=== PATIENT | male | born 1950 | race Caucasian/White ===

== ENCOUNTER 2016-04-17 10:42 | Day surgery (SDC) | payer OTHER ==
[~2016-04-17] VITALS: Ht 185.4 cm; Wt 92.5 kg
[~2016-04-17 10:42] MED LIST: Lactated Ringer's 1,000 ML IV ONE; PANT20T PO
[2016-04-17] MEDS ORDERED: Propofol 10,000 mCg/mL 20 mL Inj ONE (10:43)
[2016-04-17 11:00] VITALS: BP 116/83; PULSE 54; RESP 16; O2SAT 99
[2016-04-17] MEDS ORDERED: Lactated Ringer's 1,000 ML IV SCH (12:21)
--- NOTE | 2016-04-17 12:21 | PCM.HPANE ---
Patient Data Surgeon Admitting Provider: Attending Provider:Mario Mcqueen MD Primary Care Physician:Chevy Mace MD Other Provider:[facility] Reason for Visit Dysphagia Ht/WT & BMI Height (Feet): 6 Height (Inches): 1 Weight (Kilograms): 92.53 Body Mass Index 27.00 Allergies Coded Allergies: oxycodone (Verified Allergy, Unknown, 04/15/16) Past Anesthesia History Anesthesia History: Denies:: Abnormal Airway, Anesthesia Reactions, Difficult Intubation, Fam Anesthesia Reaction, Fam Malignant Hypertherm, Malignant Hyperthermia Diabetes History Hx Diabetes?: No MRSA MRSA: No Medications Home Meds Incl Beta Vivien: No Reported Medications Pantoprazole DR (Protonix)20 Mg [id number] Mg PO BID Ref 0 04/15/16 History HEENT History: Positive for:: Dysphagia Denies:: Abnormal Airway Difficult Intubation Hearing Problem Hx of Heart Problems?: No Cardiovascular History: Denies:: AICD Atrial Fibrillation Chest Pain Hypertension Pacemaker Valvular Heart Disease Hx of Respiratory Problem?: Yes Respiratory History: Positive for:: Asthma (childhood asthma) Denies:: COPD Cough Hemoptysis Pneumonia Tuberculosis Neurological History: Denies:: CVA Hx of GI Problems?: Yes Gastrointestinal History: Positive for:: Gastroesphageal Reflux (takes protonix) Denies:: Cirrhosis Diverticulitis (osis) Gall Bladder Disease Hiatal Hernia Liver Disease Rectal Bleeding Musculoskeletal History: Denies:: Fibromyalgia Joint Replacement Psycho Social History: Denies:: Anxiety Hx Depression Hx Surgeries?: Yes (prostatectomy 2003 ) Hx Any Other Health Problems?: No Hx Diabetes: No Hx Alcohol Use: Yes (2-3 drinks of Gin per day) Stop/Bang Treated for Sleep Apnea?: No Do You Have a CPAP Machine?: No S-Snoring: Do You Snore Loudly: Yes T-Tired: feel tired, fatigued: Yes O-Obsered: Observed not breath: No P-Blood Pressure: treated: No B- Body Mass Index > 35 kg/m2: No A- Age over 50: Yes N- Neck Large Circumference: No G- Gender Male: Yes NICK Total Score: 4 NICK Risk Assessment: Low Risk, <3 Yes Risk Assessment Category Category 1A: Patient has history of documented sleep apnea, and HAS NOT received any narcotic, sedative or anesthesia administration during this stay. Category 1B: Patient has history of documented sleep apnea, and HAS received any narcotic , sedative or anesthesia administration during this stay Category 2: Patient has SUSPECTED Obstructive Sleep Apnea, and HAS received any narcotic , sedative or anesthesia administration during this stay. Category 3: Patient has SUSPECTED Obstructive Sleep Apnea and HAS NOT received narcotic, sedative or anesthesia administration during this stay. Category 4: Outpatient in Procedural Areas with known sleep apnea or who screen positive for High Risk via the STOP/BANG questionnaire. Exam Exam Vital Signs Vital Signs Date Time Temp Pulse Resp B/P Pulse Ox O2 Delivery O2 Flow Rate FiO2 04/17/16 11:00 36.4 54 16 116/83 99 Room Air General Appearance: Oriented X3 HEENT/AIRWAY: MP 2 Lungs: Normal Air Movement Heart: Regular Rate/Rhythm Meds/Labs/Diagnostics Admission Meds Current Medications Lactated Ringer's (Lr) 1,000 ml @ 10 mls/hr Q24H ONCE IV Last administered on 04/17/16t 11:09; Start 04/17/16 at 06:00; Stop 04/18/16 at 05:59 Plan Impression Patient chart reviewed, patient interviewed and anesthestic plan with risks, benefits, and alternatives discussed, and informed consent obtained. ASA Physical Status: ASA2 Mod Systemic Disease Anesthetic Plan: MAC Bene/Risks/Altern/Consents: Yes HP Complete Prior to Induction: Yes Reji Barraza MD Apr 17, 2016 12:21
[2016-04-17] MEDS ORDERED: MetoCLOpramide 5 mg/mL 2 mL Inj IVPUSH PRN (12:25)
[2016-04-17] MEDS ORDERED: Ondansetron 2 mg/mL 2 mL Inj IVPUSH PRN (12:25)
[2016-04-17 12:44] VITALS: BP 114/73; PULSE 54; RESP 16; O2SAT 97
--- NOTE | 2016-04-17 12:51 | PCM.ANEP1 ---
Post Anesthesia Phase 1 PACU Phase 1 Assessment Vital Signs Vital Signs Date Time Temp Pulse Resp B/P Pulse Ox O2 Delivery O2 Flow Rate FiO2 04/17/16 12:44 36.4 54 16 114/73 97 Room Air 04/17/16 11:00 36.4 54 16 116/83 99 Room Air Anesthetic Administered: MAC Level of Alertness: Awake, talking Pain: No Nausea or Vomiting: No Oxygen Delivery: Room Air Lungs: Normal Air Movement Reji Barraza MD Apr 17, 2016 12:51
[2016-04-17 12:52] VITALS: BP 122/82; PULSE 53; RESP 16; O2SAT 97
--- NOTE | 2016-04-17 12:52 | PCM.ANEP2 ---
Post Anesthesia Evaluation ASA/CMS Post Anesthesia VS in Patient's Normal Range?: Yes Resp Stable; Airway Patent?: Yes CV Function & Hydration Stable: Yes Mental Status Recovered?: Yes Pain control Satisfactory?: Yes N/V Control Satisfactory?: Yes Reji Barraza MD Apr 17, 2016 12:52
[2016-04-17 13:02] VITALS: BP 137/84; PULSE 57; RESP 16; O2SAT 100
--- NOTE | 2016-04-17 13:12 | ENDO ---
[address] [address] ENDOSCOPY PROCEDURE PATIENT: VIDAL GONZALEZ : 1950 MR#: [id number] ADMIT: 04/17/2016 JOB ID: [id number] DATE: 04/17/2016 TYPE OF OPERATION: Esophagogastroduodenoscopy with biopsy. PREOPERATIVE DIAGNOSIS(ES): Dysphagia. POSTOPERATIVE DIAGNOSIS(ES): 1. Moderate distal esophagitis. 2. Multiple distal esophageal ulcers, status post biopsy. 3. Mild nonerosive gastritis. 4. Small hiatal hernia. ANESTHESIA: Monitored anesthesia care. COMPLICATIONS: None. BLOOD LOSS: Minimal. DESCRIPTION OF PROCEDURE: After risks and benefits were explained to the patient, informed consent was obtained. After anesthesia administered, upper endoscope was then inserted into the esophagus, stomach, second portion of duodenum, and the mucosa carefully examined. After the procedure was done, the scope was withdrawn and procedure terminated. FINDINGS: Upon inspection of the esophagus, there were multiple distal esophageal ulcers along with moderate esophagitis in the distal esophagus. Z-line located 35 cm from incisors. Upon entering the stomach, there was a mild amount of nonerosive gastritis. Retroflexion showed a small hiatal hernia. Duodenal bulb, first and second portion were normal. Biopsies taken from the antrum and body of the stomach and distal esophagus. IMPRESSIONS: 1. Mild nonerosive gastritis. 2. Small hiatal hernia. 3. Multiple distal esophageal ulcers, status post biopsy. 4. Moderate distal esophagitis. RECOMMENDATIONS: 1. Increase Protonix to 40 mg by mouth twice a day. 2. Carafate 1 g by mouth four times a day. 3. Await pathology results. 4. Followup in GI Clinic in 4-6 weeks.
--- NOTE | 2016-04-21 14:25 | PATH ---
SURGICAL PATHOLOGY Attending Physician:Mario Mcqueen MD CASE STATUS: Signed Out PATIENT NAME: VIDAL GONZALEZ PID: [id number] : 1950 DATE COLLECTED:04/17/2016 20:15 SPECIMEN: 1: Esophagus, Biopsy 2: Esophagus, Biopsy 3: Stomach, Antrum, Biopsy 4: Gastric, Biopsy CLINICAL HISTORY: 1). MID ESOPHAGUS BIOPSIES 2). DISTAL ESOPHAGUS BIOPSIES 3). ANTRUM BIOPSIES 4). GASTRIC BODY BIOPSIES FINAL DIAGNOSIS: 1.MID ESOPHAGUS BIOPSIES: SQUAMOUS MUCOSA WITH NO DIAGNOSTIC ALTERATIONS. Negative for intestinal/Culver' s metaplasia. Negative for dysplasia and malignancy.2.DISTAL ESOPHAGUS BIOPSIES: SQUAMOCOLUMNAR MUCOSA WITH CHRONIC ACTIVE INFLAMMATION. POSITIVE FOR INTESTINAL/CULVER' S METAPLASIA BY ALCIAN BLUE STAIN. Negative for dysplasia and malignancy. 3.ANTRUM BIOPSIES: GASTRIC ANTRAL MUCOSA WITH MILD CHRONIC INFLAMMATION. Negative for Helicobacter organisms by immunohistochemical stains. Negative for intestinal metaplasia. Negative for dysplasia and malignancy. 4.GASTRIC BODY BIOPSIES: GASTRIC BODY MUCOSA WITH MILD CHRONIC INFLAMMATION. Negative for intestinal metaplasia. Negative for dysplasia and malignancy. ICD10 code K22.71 K29.70 GROSS DESCRIPTION: The specimen is received in four formalin filled containers labeled with the patient's name. 1). The specimen is sublabeled "mid esophagus" and consists of 2 portions of tissue which aggregate to 0.3 x 0.3 x 0.2 CM. The specimen is entirely submitted in cassette 1A. 2). The specimen is sublabeled "distal esophagus" and consists of 2 portions of tissue which aggregate to 0.3 x 0.2 x 0.2 CM. The specimen is entirely submitted in cassette 2A. 3). The specimen is sublabeled "antrum" and consists of 3 portions of tissue which aggregate to 0.5 x 0.2 x 0.2 CM. The specimen is entirely submitted in cassette 3A. 4). The specimen is sublabeled "gastric body" and consists of a 0.3 x 0.3 x 0.2 CM portion of tissue which is entirely submitted in cassette 4A. 04/17/2016 DAC MICRO DESCRIPTION: 2.Sections are of squamocolumnar mucosa with chronic active inflammation and apparent goblet cells in the columnar epithelium. An Alcian blue stain is performed to confirm the presence of intestinal metaplasia. The positive control stains appropriately. The patient tissue shows positive staining in the cells in question. 3.Sections are of gastric antral mucosa with mild mononuclear cell infiltrate in the lamina propria. No intestinal metaplasia is seen. No Helicobacter organisms are identified on H&E stains. An immunohistochemical stain for Helicobacter pylori is performed to further evaluate for the presence of Helicobacter organisms. The patient tissue is stained with polyclonal antibody to Helicobacter pylori. The positive control stains appropriately. Result: The patient tissue shows no staining. Interpretation: The gastric mucosa is negative for Helicobacter organisms by immunohistochemical stains. This test was developed and its performance characteristics determined by [facility]. It has not been cleared or approved by the [place]. Food and Drug Administration. The FDA has determined that such clearance or approval is not necessary. This test is used for clinical purposes. It should not be regarded as investigational or for research. ICD-9 CODES: CPT CODES: 1: 86983 2: 03107, 37483 3: 57297, 35901 4: 47442 Electronically Signed Out Christine Lynn MD [facility] Pathology [facility] [address], [place] [address] Technical component performed at [facility], [address], [place], [address]
== END 2016-04-17 23:59 | disposition home or self-care (01) ==
LOC: END 10:42
PROVIDERS: ATTEND Internal Medicine Gastroenterology
DX: K22.70 Barrett's esophagus without dysplasia (principal); K29.50 Unspecified chronic gastritis without bleeding; K44.9 Diaphragmatic hernia without obstruction or gangrene; K21.9 Gastro-esophageal reflux disease without esophagitis; N39.3 Stress incontinence (female) (male); F12.90 Cannabis use, unspecified, uncomplicated; Z85.46 Personal history of malignant neoplasm of prostate; Z86.010 Personal history of colon polyps
CPT/HCPCS: 43239; J7120